=== PATIENT | male | born 1975 | race Caucasian/White ===

== ENCOUNTER 2018-05-05 21:35 | Emergency (ER) | payer SELFPAY ==
[~2018-05-05 21:35] MED LIST: AMLO-96 PO; ERTA1VIA IV; LEVO-3 PO; PER PO
[2018-05-05 21:39] VITALS: BP 150/137
--- NOTE | 2018-05-05 21:52 | ER Report ---
History and Physical Time Seen By MD: 21:48 HPI/ROS CHIEF COMPLAINT: Detention clearance, swollen right hand HISTORY OF PRESENT ILLNESS: 42-year-old male brought in by police for snf clearance. Patient admits to alcohol ingestion. He has a swollen right hand. He states he was injured 2 days ago. He thinks there may be a fracture. He is offered an x-ray, but declines. Patient denies other injuries. Patient denies significant past medical history REVIEW OF SYSTEMS: Respiratory: No cough, no dyspnea. Cardiovascular: No chest pain, no palpitations. Gastrointestinal: No vomiting, no abdominal pain. Musculoskeletal: As above Allergies: Coded Allergies: No Known Drug Allergies (Unverified , 07/31/17) Reviewed Nurses Notes: Yes Old Medical Records Reviewed: Yes Hx Smoking: Yes Smoking Status: Current: Every Day Smoker Hx Substance Use Disorder: No Hx Alcohol Use: No Constitutional Vital Sign - Last 24 Hours 05/05/18 21:39 Temp 97.8 Pulse 110 Resp 18 B/P (MAP) 150/137 Pulse Ox 91 O2 Delivery Room Air Physical Exam Vital signs stable, afebrile, pulse ox normal General Appearance: The patient is alert, has no immediate need for airway protection and no current signs of toxicity. No acute distress, palpation of the head and neck reveal no tenderness or trauma HEENT: Pupils equal and round no injection. TMs normal, oropharynx without dental trauma Respiratory: Chest is non tender, lungs are clear to auscultation. No chest wall tenderness Cardiac: regular rate and rhythm Gastrointestinal: Abdomen is soft and non tender, no masses, bowel sounds normal. Musculoskeletal: Neck: Neck is supple and non tender. Extremities have full range of motion and are non tender. Skin: No rashes or lesions. DIFFERENTIAL DIAGNOSIS: After history and physical exam differential diagnosis was considered for snf clearance, alcohol intoxication, polysubstance abuse, hand fracture, hand sprain, hand contusion, dislocation Medical Decision Making ED Course/Re-evaluation ED Course Patient was admitted to an examination room. H&P was done. The differential diagnoses was considered. On clinical examination. Patient has no findings. He is medical cleared for snf. Decision to Disposition Date: May 05, 2018 Decision to Disposition Time: 21:51 Depart Departure Latest Vital Signs Vital Signs Date Time Temp Pulse Resp B/P (MAP) Pulse Ox O2 Delivery O2 Flow Rate FiO2 05/05/18 21:39 97.8 110 18 150/137 91 Room Air Impression: Primary Impression: Medical clearance for incarceration Additional Impression: Swelling of right hand Condition: Improved Disposition: [facility] TO LONGTERM/CORRECTIONAL F Patient Instructions: Contusion in Adults (ED) Additional Instructions: Medical cleared for snf admission Problem Qualifiers ELIAS CENTENO DO May 05, 2018 21:52
== END 2018-05-05 21:54 ==
LOC: ER 21:38
DX: F10.920 Alcohol use, unspecified with intoxication, uncomplicated (principal); M79.89 Other specified soft tissue disorders
CPT/HCPCS: 99281